=== PATIENT | male | born 1985 | race Caucasian/White ===

== ENCOUNTER 2021-10-28 16:29 | Inpatient (IN) ==
[2021-10-28] MEDS ORDERED: Naloxone 0.4 MG/ML INJ IVP PRN (20:07)
[2021-10-28] MEDS ORDERED: *HR* LORazepam 2 MG/ML VIAL IVP PRN (20:09)
[2021-10-28] MEDS: Folic Acid 1 MG TABLET PO SCH (21:30)
[2021-10-28] MEDS: Vitamin B Complex/Vit C/Vit E 1 EACH TABLET PO SCH (21:30)
[2021-10-28] MEDS: 0.9 % Sodium Chloride 1,000 ML IVC SCH (21:30)
[2021-10-28] MEDS: Thiamine (B-1) 200 MG in 0.9 % Sodium Chloride 50 ML IVPB SCH (21:30)
[2021-10-28] MEDS: Melatonin 3 MG TABLET PO PRN (21:30)
[2021-10-28] MEDS ORDERED: Ketorolac 30 MG/ML VIAL IVP PRN (21:54)
[2021-10-28] MEDS: *HR* LORazepam 2 MG/ML VIAL IVP PRN (21:56)
[2021-10-28] MEDS: Ondansetron 4 MG/2 ML VIAL IVP PRN (21:56)
[2021-10-29 02:08] LABS: Basophils % 0.6 %; Eosinophils # 0.1 K/mcL (0.0-0.6); Eosinophils % 1.3 %; Hematocrit 30.6 % (37.5-50.1); Hemoglobin 11.1 g/dL (12.9-16.9); Immature Granulocytes % 0.2 % (0-4); Lymphocytes # 1.2 K/mcL (0.6-4.6); Lymphocytes % 21.8 %; Mean Corpuscular HGB Conc 36.3 g/dL (31.6-35.5); Mean Corpuscular Hemoglobin 35.1 pg (28.0-33.3); Mean Corpuscular Volume 96.8 fL (83.0-100.0); Mean Platelet Volume 8.2 fL (9.4-12.4); Monocytes # 0.3 K/mcL (0.0-1.3); Monocytes % 6.4 %; Neutrophils # 3.7 K/mcL (1.6-8.9); Platelet Count 161 K/mcL (140-400); Red Blood Count 3.16 M/mcL (4.19-5.50); Red Cell Distribution Width 16.2 % (11.5-14.5); Segmented Neutrophils % 69.7 %; White Blood Count 5.3 K/mcL (4.3-11.1)
[2021-10-29 02:17] LABS: Prothrombin Time 11.4 Seconds (9.4-12.1)
[2021-10-29 02:19] LABS: Activated Partial Thrombo Time 24.8 Seconds (26.0-36.0)
[2021-10-29 02:27] LABS: Alanine Aminotransferase 12 Units/L (7-52); Albumin 3.7 g/dL (3.5-5.7); Albumin/Globulin Ratio 1.8 (1.1-2.2); Alkaline Phosphatase 49 Units/L (34-104); Aspartate Amino Transferase 29 Units/L (13-39); BUN/Creatinine Ratio 7 (6-26); Bilirubin,Total 0.8 mg/dL (0.3-1.0); Blood Urea Nitrogen 7 mg/dL (6-20); Calcium 8.2 mg/dL (8.6-10.3); Carbon Dioxide 25 mEq/L (23-29); Chloride 106 mEq/L (98-107); Globulin 2.1 g/dL (2.4-3.5); Glucose 99 mg/dL (70-105); Magnesium 1.9 mg/dL (1.6-2.6); Osmolality,Calculated 280 (280-300); Phosphorous 3.4 mg/dL (2.7-4.5); Potassium 3.5 mEq/L (3.5-5.1); Sodium 136 mEq/L (136-145); Total Protein 5.8 g/dL (6.4-8.9); eGFR For African Americans > 60 (> 60); eGFR For Non-African Americans > 60 (> 60)
[2021-10-29] MEDS: 0.9 % Sodium Chloride 1,000 ML IVC SCH (04:59)
[2021-10-29] MEDS: Folic Acid 1 MG TABLET PO SCH (09:11)
[2021-10-29] MEDS: Vitamin B Complex/Vit C/Vit E 1 EACH TABLET PO SCH (09:12)
[2021-10-29] MEDS: Thiamine (B-1) 200 MG in 0.9 % Sodium Chloride 50 ML IVPB SCH (09:12)
[2021-10-29] MEDS: *HR* LORazepam 2 MG/ML VIAL IVP PRN ×6 (09:18→21:23)
[2021-10-29] MEDS ORDERED: *HR* LORazepam 2 MG/ML VIAL IVP ONE (10:25)
[2021-10-29] MEDS: Melatonin 3 MG TABLET PO PRN (22:42)
[2021-10-29] MEDS: Ondansetron 4 MG/2 ML VIAL IVP PRN (22:42)
[2021-10-30] MEDS: traZODone 50 MG TABLET PO PRN ×2 (00:44→21:44)
[2021-10-30] MEDS: *HR* LORazepam 2 MG/ML VIAL IVP PRN ×6 (01:23→23:50)
[2021-10-30] MEDS: Thiamine (B-1) 200 MG in 0.9 % Sodium Chloride 50 ML IVPB SCH (08:17)
[2021-10-30] MEDS: Folic Acid 1 MG TABLET PO SCH (08:17)
[2021-10-30] MEDS: Vitamin B Complex/Vit C/Vit E 1 EACH TABLET PO SCH (08:17)
[2021-10-31] MEDS: Folic Acid 1 MG TABLET PO SCH (08:00)
[2021-10-31] MEDS: Vitamin B Complex/Vit C/Vit E 1 EACH TABLET PO SCH (08:00)
[2021-10-31] MEDS: *HR* LORazepam 2 MG/ML VIAL IVP PRN ×2 (08:09→13:37)
[2021-10-31] MEDS ORDERED: *HR* LORazepam 2 MG/ML VIAL IVP ONE (16:02)
[2021-10-31] MEDS: traZODone 50 MG TABLET PO PRN (19:51)
[2021-11-01] MEDS: *HR* LORazepam 2 MG/ML VIAL IVP PRN (00:39)
[2021-11-01] MEDS: Vitamin B Complex/Vit C/Vit E 1 EACH TABLET PO SCH (08:05)
[2021-11-01] MEDS: Folic Acid 1 MG TABLET PO SCH (08:05)
[2021-11-01 08:36] LABS: Hematocrit 36.3 % (37.5-50.1); Hemoglobin 12.4 g/dL (12.9-16.9); Mean Corpuscular HGB Conc 34.2 g/dL (31.6-35.5); Mean Corpuscular Hemoglobin 34.1 pg (28.0-33.3); Mean Corpuscular Volume 99.7 fL (83.0-100.0); Mean Platelet Volume 8.5 fL (9.4-12.4); Platelet Count 234 K/mcL (140-400); Red Blood Count 3.64 M/mcL (4.19-5.50); Red Cell Distribution Width 17.7 % (11.5-14.5); White Blood Count 5.9 K/mcL (4.3-11.1)
[2021-11-01 08:55] LABS: BUN/Creatinine Ratio 12 (6-26); Blood Urea Nitrogen 12 mg/dL (6-20); Calcium 9.2 mg/dL (8.6-10.3); Carbon Dioxide 25 mEq/L (23-29); Chloride 105 mEq/L (98-107); Glucose 95 mg/dL (70-105); Osmolality,Calculated 284 (280-300); Potassium 3.8 mEq/L (3.5-5.1); Sodium 137 mEq/L (136-145); eGFR For African Americans > 60 (> 60); eGFR For Non-African Americans > 60 (> 60)
[2021-11-02 07:41] VITALS: BP 121/78; PULSE 77; TEMP 98.1; O2SAT 98
[2021-11-02] MEDS: Folic Acid 1 MG TABLET PO SCH (08:48)
[2021-11-02] MEDS: Vitamin B Complex/Vit C/Vit E 1 EACH TABLET PO SCH (08:48)
== END 2021-11-02 10:55 | disposition home or self-care (01) | DRG 775 ==
LOC: 3BNU → SUATTDRO 19:33
PROVIDERS: ADMIT Internal Medicine; ATTEND Registered Nurse

== ENCOUNTER 2022-03-02 12:47 | Observation (INO) ==
[2022-03-02] MEDS ORDERED: Folic Acid 1 MG in 0.9 % Sodium Chloride 50 ML IVPB ONE (13:35)
[2022-03-02] MEDS ORDERED: MVI, adult with vitamin K 10 ML in 0.9 % Sodium Chloride 1,000 ML IVC ONE (13:35)
[2022-03-02] MEDS ORDERED: Thiamine (B-1) 200 MG in 0.9 % Sodium Chloride 50 ML IVPB ONE ×2 (13:35→15:30)
[2022-03-02] MEDS ORDERED: *HR* LORazepam 2 MG/ML VIAL IVP ONE ×3 (13:35→16:42)
[2022-03-02 13:57] LABS: Basophils # 0.1 K/mcL (0.0-0.2); Basophils % 1.6 %; Eosinophils # 0.1 K/mcL (0.0-0.6); Hematocrit 43.1 % (37.5-50.1); Immature Granulocytes % 0.2 % (0-4); Lymphocytes # 2.7 K/mcL (0.6-4.6); Lymphocytes % 53.1 %; Mean Corpuscular HGB Conc 34.8 g/dL (31.6-35.5); Mean Corpuscular Hemoglobin 32.5 pg (28.0-33.3); Mean Corpuscular Volume 93.5 fL (83.0-100.0); Mean Platelet Volume 8.4 fL (9.4-12.4); Monocytes # 0.5 K/mcL (0.0-1.3); Monocytes % 9.2 %; Neutrophils # 1.7 K/mcL (1.6-8.9); Platelet Count 218 K/mcL (140-400); Red Blood Count 4.61 M/mcL (4.19-5.50); Red Cell Distribution Width 14.6 % (11.5-14.5); Segmented Neutrophils % 34.9 %
[2022-03-02] MEDS ORDERED: Ondansetron 4 MG/2 ML VIAL IVP ONE (14:01)
[2022-03-02 14:26] LABS: BUN/Creatinine Ratio 7 (6-26); Blood Urea Nitrogen 6 mg/dL (6-20); Carbon Dioxide 29 mEq/L (23-29); Chloride 101 mEq/L (98-107); Ethanol 293 mg/dL (Less than 10); Glucose 95 mg/dL (70-105); Osmolality,Calculated 289 (280-300); Potassium 3.4 mEq/L (3.5-5.1); Sodium 141 mEq/L (136-145); eGFR For African Americans > 60 (> 60); eGFR For Non-African Americans > 60 (> 60)
[2022-03-02] MEDS ORDERED: *HR* LORazepam 2 MG/ML VIAL IVP PRN (16:42)
[2022-03-02] MEDS ORDERED: Naloxone 0.4 MG/ML INJ IVP PRN (16:42)
[2022-03-02] MEDS ORDERED: Ondansetron ODT 4 MG TAB.RAPDIS SL PRN (16:42)
[2022-03-02] MEDS ORDERED: Melatonin 3 MG TABLET PO PRN (16:42)
[2022-03-02] MEDS ORDERED: MOM Conc 10 ML UD.LIQ PO PRN (16:42)
[2022-03-02] MEDS ORDERED: Mag Hydrox/Al Hydrox/Simeth 30 ML UDC PO PRN (16:42)
[2022-03-02] MEDS: *HR* LORazepam 2 MG/ML VIAL IVP PRN ×2 (18:55→23:02)
[2022-03-03 03:09] LABS: Basophils # 0.1 K/mcL (0.0-0.2); Basophils % 1.6 %; Eosinophils # 0.1 K/mcL (0.0-0.6); Eosinophils % 1.9 %; Hematocrit 41.8 % (37.5-50.1); Hemoglobin 14.1 g/dL (12.9-16.9); Lymphocytes # 1.5 K/mcL (0.6-4.6); Lymphocytes % 42.2 %; Mean Corpuscular HGB Conc 33.7 g/dL (31.6-35.5); Mean Corpuscular Hemoglobin 32.2 pg (28.0-33.3); Mean Corpuscular Volume 95.4 fL (83.0-100.0); Mean Platelet Volume 8.8 fL (9.4-12.4); Monocytes # 0.3 K/mcL (0.0-1.3); Monocytes % 6.8 %; Neutrophils # 1.7 K/mcL (1.6-8.9); Platelet Count 208 K/mcL (140-400); Red Blood Count 4.38 M/mcL (4.19-5.50); Red Cell Distribution Width 14.2 % (11.5-14.5); Segmented Neutrophils % 47.5 %; White Blood Count 3.7 K/mcL (4.3-11.1)
[2022-03-03 03:30] LABS: Alanine Aminotransferase 85 Units/L (7-52); Albumin 3.9 g/dL (3.5-5.7); Albumin/Globulin Ratio 1.4 (1.1-2.2); Alkaline Phosphatase 70 Units/L (34-104); Aspartate Amino Transferase 174 Units/L (13-39); BUN/Creatinine Ratio 7 (6-26); Bilirubin,Total 0.7 mg/dL (0.3-1.0); Blood Urea Nitrogen 5 mg/dL (6-20); Calcium 8.4 mg/dL (8.6-10.3); Carbon Dioxide 24 mEq/L (23-29); Chloride 104 mEq/L (98-107); Globulin 2.8 g/dL (2.4-3.5); Glucose 76 mg/dL (70-105); Osmolality,Calculated 284 (280-300); Potassium 4.1 mEq/L (3.5-5.1); Sodium 139 mEq/L (136-145); Total Protein 6.7 g/dL (6.4-8.9); eGFR For African Americans > 60 (> 60); eGFR For Non-African Americans > 60 (> 60)
[2022-03-03] MEDS: *HR* LORazepam 2 MG/ML VIAL IVP PRN ×4 (03:55→11:48)
[2022-03-03] MEDS ORDERED: *HR* Enoxaparin 40 MG/0.4 ML SYRINGE SQ SCH (06:00)
[2022-03-03 06:54] VITALS: PULSE 99; TEMP 98.2
[2022-03-03 06:55] VITALS: BP 161/103; O2SAT 98
[2022-03-03] MEDS ORDERED: Thiamine (B-1) 100 MG TABLET PO SCH (09:00)
[2022-03-03] MEDS ORDERED: Folic Acid 1 MG TABLET PO SCH (09:00)
[2022-03-03] MEDS ORDERED: Vitamin B Complex/Vit C/Vit E 1 EACH TABLET PO SCH (09:00)
== END 2022-03-03 12:15 | disposition other institution (70) ==
LOC: 3NENU 12:47 → EMEROOARM 12:47 → SUATTDRO 17:03 → 3NENU 18:34
PROVIDERS: ADMIT Internal Medicine; ATTEND Registered Nurse

== ENCOUNTER 2022-05-30 09:13 | Observation (INO) ==
[2022-05-30] MEDS ORDERED: *HR* LORazepam 2 MG/ML VIAL ONE (09:46)
[2022-05-30] MEDS ORDERED: *HR* Promethazine 25 MG/ML VIAL IM PRN (09:52)
[2022-05-30] MEDS ORDERED: *HR* LORazepam 2 MG/ML VIAL IVP PRN ×2 (09:52→11:25)
[2022-05-30] MEDS ORDERED: *HR* LORazepam 1 MG TABLET PO PRN ×4 (09:52→11:23)
[2022-05-30] MEDS ORDERED: Thiamine (B-1) 100 MG, Folic Acid 1 MG, MVI, adult with vitamin K 10 ML in 0.9 % Sodi... IVPB ONE (09:53)
[2022-05-30] MEDS: *HR* LORazepam 2 MG/ML VIAL IVP PRN ×3 (10:02→21:19)
[2022-05-30] MEDS ORDERED: *HR* LORazepam 2 MG/ML VIAL IVP ONE (10:03)
[2022-05-30 10:20] LABS: Basophils # 0.1 K/mcL (0.0-0.2); Basophils % 2.4 %; Eosinophils % 0.9 %; Hematocrit 40.8 % (37.5-50.1); Lymphocytes # 2.1 K/mcL (0.6-4.6); Lymphocytes % 46.1 %; Mean Corpuscular HGB Conc 34.3 g/dL (31.6-35.5); Mean Corpuscular Hemoglobin 32.9 pg (28.0-33.3); Mean Corpuscular Volume 95.8 fL (83.0-100.0); Mean Platelet Volume 8.1 fL (9.4-12.4); Monocytes # 0.5 K/mcL (0.0-1.3); Monocytes % 11.3 %; Neutrophils # 1.8 K/mcL (1.6-8.9); Platelet Count 384 K/mcL (140-400); Red Blood Count 4.26 M/mcL (4.19-5.50); Red Cell Distribution Width 15.2 % (11.5-14.5); Segmented Neutrophils % 39.3 %; White Blood Count 4.6 K/mcL (4.3-11.1)
[2022-05-30 10:36] LABS: Alanine Aminotransferase 15 Units/L (7-52); Albumin 4.7 g/dL (3.5-5.7); Albumin/Globulin Ratio 1.9 (1.1-2.2); Alkaline Phosphatase 51 Units/L (34-104); Aspartate Amino Transferase 29 Units/L (13-39); BUN/Creatinine Ratio 6 (6-26); Bilirubin,Direct 0.1 mg/dL (0.0-0.2); Bilirubin,Indirect 0.3 mg/dL (0.0-1.0); Bilirubin,Total 0.4 mg/dL (0.3-1.0); Blood Urea Nitrogen 5 mg/dL (6-20); Calcium 9.1 mg/dL (8.6-10.3); Carbon Dioxide 26 mEq/L (23-29); Chloride 104 mEq/L (98-107); Ethanol 333 mg/dL (Less than 10); Globulin 2.5 g/dL (2.4-3.5); Glucose 114 mg/dL (70-105); Lipase 77 Units/L (11-82); Magnesium 2.1 mg/dL (1.6-2.6); Osmolality,Calculated 292 (280-300); Potassium 3.5 mEq/L (3.5-5.1); Sodium 142 mEq/L (136-145); Total Protein 7.2 g/dL (6.4-8.9)
[2022-05-30] MEDS ORDERED: Naloxone 0.4 MG/ML INJ IVP PRN (11:26)
[2022-05-30] MEDS ORDERED: Ondansetron 4 MG/2 ML VIAL IVP PRN (11:26)
[2022-05-30] MEDS ORDERED: *HR* HYDROcodone/Acet 5/325 mg TABLET PO PRN (11:26)
[2022-05-30 12:45] LABS: Amphetamine Screen,Urine Negative ng/mL (Cutoff=1000); Barbiturate Screen,Urine Negative ng/mL (Cutoff=200); Benzodiazepines Screen,Urine Negative ng/mL (Cutoff=200); Cannabinoid Screen,Urine Negative ng/mL (Cutoff = 50); Cocaine Screen,Urine Negative ng/mL (Cutoff= 300); Opiate Screen,Urine Negative ng/mL (Cutoff=300); Phencyclidine Screen,Urine Negative ng/mL (Cutoff=25)
[2022-05-31] MEDS: *HR* LORazepam 2 MG/ML VIAL IVP PRN ×4 (01:06→14:26)
[2022-05-31 01:46] LABS: BUN/Creatinine Ratio 8 (6-26); Blood Urea Nitrogen 6 mg/dL (6-20); Calcium 8.1 mg/dL (8.6-10.3); Carbon Dioxide 19 mEq/L (23-29); Chloride 106 mEq/L (98-107); Glucose 83 mg/dL (70-105); Magnesium 1.8 mg/dL (1.6-2.6); Osmolality,Calculated 281 (280-300); Phosphorous 3.1 mg/dL (2.7-4.5); Potassium 4.5 mEq/L (3.5-5.1); Sodium 137 mEq/L (136-145)
[2022-05-31] MEDS ORDERED: *HR* Enoxaparin 40 MG/0.4 ML SYRINGE SQ SCH (06:00)
[2022-05-31] MEDS ORDERED: Thiamine (B-1) 100 MG TABLET PO SCH (09:00)
[2022-05-31] MEDS ORDERED: Folic Acid 1 MG TABLET PO SCH (09:00)
[2022-05-31] MEDS ORDERED: Nicotine 21 MG PATCH.TD24 TD SCH (09:00)
[2022-05-31 14:47] LABS: Influenza A PCR Negative (Negative); Influenza B PCR Negative (Negative); Resp. Syncytial Virus PCR Negative (Negative)
[2022-05-31 14:48] LABS: SARS-CoV-2 by PCR (In House) Negative (Negative)
[2022-05-31 16:03] VITALS: BP 157/90; PULSE 110; TEMP 98.4; O2SAT 98
== END 2022-05-31 17:28 ==
LOC: 3BNU 09:13 → EMEROOARM 09:13 → SUATTDRO 11:44 → 3BNU 12:33
PROVIDERS: ADMIT Internal Medicine; ATTEND Internal Medicine